=== PATIENT | male | born 1970 ===

== ENCOUNTER → 2022-12-29 14:54 | Outpatient (CLI) | payer OTHER, SELFPAY ==
--- NOTE | 2022-12-29 | DI.ECHO.S_ITS ---
[facility] +---------+ : : [address] : [place] [address] : : : : [id number] : : : : Phone: [phone]---------+ Echocardiogram Report + + :Name: PETE DOBBS Study Date: 12/29/2022 Height: 72 in : :[facility] ReadingLocation: Weight: 200 lb : : Gender: Male BSA: 2.1 m2 : :: 1970 Age: 52 yrs BP: 122/73 mmHg: :Reason For Study: TACHYCARDIA HR: 100 : :Ordering Physician: MAHIN, : :CAROLE Performed By: GEORGIA DUEÑAS : :Referring: CAROLE STOCKTON : + + Interpretation Summary The patient was in sinus tachycardia with heart rates between 97-103 bpm during the exam. The left ventricle is normal in size. Left ventricular systolic function is severely reduced. The ejection fraction is estimated to be 25-30%. Except basal anterolateral, basal inferior lateral, basal septum and basal anterior wall, rest of the LV segments are severely hypokinetic. Inferior wall appears to be akinetic. The right ventricle is normal size. The right ventricular systolic function is normal. There is mild mitral regurgitation. The IVC is of normal diameter and collapses greater than 50% with a sniff. This suggests a low right atrial pressure of 3 mm Hg. Procedure: A two-dimensional transthoracic echocardiogram with color flow and Doppler was performed. The study quality was technically adequate. There is no prior echocardiogram noted for this patient. The patient was in a tachycardic rhythm during the exam. The patient was in sinus tachycardia with heart rates between 97-103 bpm during the exam. Left Ventricle: The left ventricle is normal in size. Left ventricular wall thickness is mildly increased. There is no thrombus. Trabeculae near apex are visualized. No thrombus is observed. Left ventricular systolic function is severely reduced. The ejection fraction is estimated to be 25-30%. Except basal anterolateral, basal inferior lateral, basal septum and basal anterior wall, rest of the LV segments are severely hypokinetic. Inferior wall appears to be akinetic. Diastolic parameters suggest a relaxation abnormality of the left ventricle, consistent with probable normal filling pressures. Right Ventricle: The right ventricle is normal size. The right ventricular systolic function is normal. Atria: The left atrium is mildly dilated. The right atrium is mildly dilated. There is no Doppler evidence for an interatrial shunt. Mitral Valve: The mitral valve leaflets appear borderline thickened, but open well. There is mild mitral regurgitation. Aortic Valve: The aortic valve opens well. The aortic valve is trileaflet. There is no aortic valve stenosis. There is trace aortic regurgitation. Tricuspid Valve: The tricuspid valve is normal in structure and function. There is trace tricuspid regurgitation. Pulmonary artery pressures cannot be estimated because of the lack of a measurable TR jet velocity. Pulmonic Valve: The pulmonic valve is not well visualized. There is no pulmonic valvular regurgitation. Great Vessels: The aortic root is moderately dilated. The ascending aorta is normal in size. The IVC is of normal diameter and collapses greater than 50% with a sniff. This suggests a low right atrial pressure of 3 mm Hg. Pericardium/ Pleura There is a trivial pericardial effusion noted. There is an anterior echo-free space consistent with a fat pad. There is no pleural effusion. MMode/2D Measurements & Calculations LVIDd: 5.6 cm LVOT diam: 2.0 cm LVIDs: 3.8 cm Ao root diam: 4.6 cm FS: 32.3 % asc Aorta Diam: 3.5 cm IVSd: 0.96 cm LVPWd: 1.2 cm LV walker. diameter/BSA (cm/m^2): 2.6 LV sys. diameter/BSA (cm/m^2): 1.8 LA A2 area: 22.3 cm2 RA long axis: 4.7 cm LA A4 area: 13.9 cm2 RA area: 18.3 cm2 LA length (vol): 4.3 cm RA vol: 60.7 ml LA vol: 61.1 ml RA : 28.5 ml/m2 LA vol index: 28.7 ml/m2 IVC diam: 1.0 cm RVD1 (basal): 3.9 cm TAPSE: 2.3 cm Doppler Measurements & Calculations Ao V2 max: 105.0 cm/sec LVOT Max Jmaey: 85.4 cm/sec Ao V2 mean: 75.1 cm/sec LV V1 max P.9 mmHg Ao max P.4 mmHg LV V1 VTI: 18.2 cm Ao mean P.5 mmHg DELFINA(I,D): 3.1 cm2 Ao V2 VTI: 18.4 cm DELFINA(V,D): 2.6 cm2 sev ratio: 0.99 DELFINA indexed to BSA (cm^2/m^2): 1.5 MV E max jamey: 44.5 cm/sec PA V2 max: 78.0 cm/sec MV A max jamey: 60.6 cm/sec PA V2 mean: 58.5 cm/sec MV E/A: 0.73 PA mean P.5 mmHg Med Peak E' Jamey: 11.8 cm/sec PA pr(Accel): 43.0 mmHg E/E' med: 3.8 Lat Peak E' Jamey: 15.7 cm/sec E/E' lat: 2.8 E/e' average: 3.3 MV dec time: 0.17 sec SV(LVOT): 57.8 ml Reading Physician:05:25 PM
== END ==
PROVIDERS: Referring Provider Family Medicine; Visit Provider Family Medicine
DX: I34.0 Nonrheumatic mitral (valve) insufficiency (principal); I77.810 Thoracic aortic ectasia; R00.0 Tachycardia, unspecified
CPT/HCPCS: 93306